=== PATIENT | female | born 1955 | race Caucasian/White ===

== ENCOUNTER 2018-05-23 11:49 | Outpatient (CLI) | payer BC, SELFPAY ==
[2018-05-23 13:18] LABS: Abs Immature Grans 0.01 k/cumm (0.0-0.09); Absolute Basophil Count 0.04 k/cumm (0.0-0.2); Absolute Eosinophil Count 0.27 k/cumm (0.0-0.7); Absolute Lymphocyte Count 1.75 k/cumm (1.2-3.4); Absolute Monocyte Count 0.38 k/cumm (0.11-0.7); Absolute Neutrophil Count 4.15 k/cumm (1.2-6.7); Basophils % 0.6; Eosinophils % 4.1; HCT 43.1 % (36.0-46.0); HGB 14.3 g/dL (12.0-15.5); Immature Grans % 0.2; Lymphocytes % 26.5; Mean Corp. HGB Concentration 33.2 g/dL (32.0-36.0); Mean Corpuscular Hemoglobin 30.3 pg (27.0-33.0); Mean Corpuscular Volume 91.3 fL (80-95); Mean Platelet Volume 11.3 fL (8.0-11.0); Monocytes % 5.8; Neutrophils % 62.8; Platelet Count 222 x1000/uL (130-400); RBC 4.72 m/cumm (4.00-5.20); RBC Distribution Width 13.8 % (11.7-14.6)
[2018-05-23 13:34] LABS: ALT 20 U/L (12-78); AST 18 U/L (15-37); Albumin 3.9 g/dL (3.4-5.0); Alkaline Phosphatase 92 U/L (46-116); BUN 14 mg/dL (7-18); Bilirubin, Total 0.6 mg/dL (0.2-1.0); CREATININE 1.25 mg/dL (0.55-1.02); Calcium 9.9 mg/dL (8.5-10.1); Chloride 107 mmol/L (98-107); Estimated GFR 43.15 (mL/min/1.73m2); Glucose 89 mg/dL (70-100); Potassium 5.1 mmol/L (3.5-5.1); Sodium 143 mmol/L (136-145); Total Protein 7.4 g/dL (6.4-8.2)
[2018-05-23 21:02] LABS: Clarity Clear; Specific Gravity 1.015 (1.005-1.025)
[2018-05-23 21:03] LABS: Bilirubin Negative (Negative); Blood Negative (Negative); Glucose Negative (Negative); Ketones Negative (Negative); Leukocyte Esterase Negative (Negative); Nitrite Negative (Negative); Urobilinogen 0.2 EU/dL (Up TO 0.2); pH 6.5 (5-8)
== END 2018-05-23 12:09 ==
PROVIDERS: PCP Nurse Practitioner Family; Visit Provider Family Medicine
DX: Z00.00 Encounter for general adult medical examination without abnormal findings (principal); R10.31 Right lower quadrant pain; R39.11 Hesitancy of micturition
CPT/HCPCS: 36415; 80053; 81003; 85025

== ENCOUNTER 2018-07-31 09:10 | Day surgery (SDC) | payer BC, SELFPAY ==
--- NOTE | 2018-07-31 07:10 | W.COLOREPORT ---
Date of service: 07/31/18 Time of Service: 10:46 Colonoscopy Report Date of procedure: 07/31/18 Pre-op diagnosis general: Colon Cancer Screening Post-op diagnosis procedure note: other (cecal polyp) Procedure: Colonoscopy with polypectomy by cold forceps Surgeon: Bruna Pryor Anesthesia proc note operative: other (General/ ASA 2/ Pinky Do CRNA) Estimated blood loss (mL): 2 Pathology: other (cecal polyp) Complications: None Disposition: same day Indications: Mrs. Rai is a pleasant 62 year old female who was seen in the office for a screening colonoscopy. Her last colonoscopy in 2006 was normal. Risks, benefits and complications have been reviewed. Complications include but are not limited to bleeding, pain, perforation, missed small lesion/polyp, sore throat, aspiration and adverse reaction to the medications. Questions were entertained and answered to their satisfaction and they wished to proceed. No guarantees were given or implied. Prep: Miralax/Dulcolax Procedure Start Time: 10:46 Procedure End Time: 11:06 Retraction Time: 13 minutes Findings: One Sessile Polyp in the cecum removed with cold forceps Procedure Description: After informed consent was obtained the patient was taken to the procedure room and placed in a left decubitous position. Monitors were applied and a time out was done. The patients name, date of , procedure, allergies to medications and metal in their body was reviewed. The patient was then sedated. Once sedated and comfortable a rectal exam was done. External exam was normal. Internal exam revealed a normal sphincter tone and no palpable masses. The scope was then introduced and retro-flexed. No internal hemorrhoids were identified. There were some internal hemorrhoidal skin tags. No masses or polyps were identified. The scope was then advanced to the cecum without difficulty. The TI and appendiceal orifice were identified. The prep was adequate. The scope was then slowly retracted over 13 minutes back into the rectum. Polyps were removed in the cecum with cold forceps. There were no diverticula. The scope was removed and the patient was woken up and taken back to Same day surgery in stable condition. The patient tolerated the procedure well and there were no immediate complications. Follow up: The patient should follow up in 3-5 years unless they develop changes in bowel habits or other new gastrointestinal complaints.
--- NOTE | 2018-07-31 07:14 | PDOC.DSDIS_ITS ---
Discharge Plan Disposition Patient Disposition: HOME Condition: Good Discharge Details Reason For Visit: Colonoscopy Attending Provider: Bruna Pryor Primary Care Provider: Alecia Phillips Home Meds and New Rx's Prescriptions: Continued levothyroxine 75 MCG tablet 75 mcg PO DAILY Qty: 90 RF: 4 levothyroxine 88 MCG tablet 88 mcg PO as directed Qty: 90 RF: 4 cholecalciferol (vitamin D3) 1,000 UNIT tablet,chewable 1,000 unit PO DAILY Qty: 90 RF: 4 Gelusil Antacid and Anti-Gas 1 EACH tablet,chewable 1 ea PO PRN PRNRF: 0 Discontinued polyethylene glycol 3350 17 gram/dose powder 238 g PO ONCE Qty: 238 RF: 0 bisacodyl [Dulcolax (bisacodyl)] 5 mg tablet,delayed release (DR/EC) 5 mg PO ONCE Qty: 4 RF: 0 Discharge Instructions Instructions: Colonoscopy (DC), Colorectal Polyps (DC) Additional Instructions: Findings: One polyp Follow up: 3-5 years Please call if you develop: fevers >101.5 Nausea or Vomiting Abdominal pain that is not transient DAY SURGERY UNIT POST COLONOSCOPY INSTRUCTIONS 1. Because there will be medication in your system for the next 24 hours, you may feel a little sleepy. Your coordination will be affected. Therefore: a. Do not drive or operate dangerous equipment for 24 hours. b. Do not drink alcohol beverages for 24 hours (not even beer). c. Plan to go home and rest for the day. 2. Generally there are no restrictions on your activity after a day or so has gone by, but you may feel a bit fatigued for a few days. 3 After you arrive home you may have a light meal and return to a normal diet as you can tolerate it without feeling sick to your stomach. 4. After surgery, you may feel pain or discomfort. This should be only transi ent, but if it persists please contact your doctor. 5. If there are any questions regarding the findings of your procedure, please feel free to contact your doctor. 6. If you are unable to contact your doctor with a problem, contact the hospital at [phone]. 7. Continue all your regular medications unless directed otherwise. I understand the above instructions and have no questions. Signature of Patient or Responsible Adult Escort Date/Time Name of Responsible Adult Escort Signature of Nurse Date/Time Activity:: Activity as Tolerated Diet:: As Tolerated Discharge Orders Discharge Orders: Discharge Order (Routine); Ordered 07/31/18 Ordered By: Bruna Pryor DS: Diagnosis Discharge Diagnosis (1) S/P colonoscopy: Status: Acute (2) Colorectal polyp detected on colonoscopy: Status: Acute
[2018-07-31 09:30] VITALS: BP 118/62; PULSE 58; RESP 16; TEMP 35.4; O2SAT 100
--- NOTE | 2018-07-31 10:54 | BOWEL_PTH ---
PATIENT: Sharri Rai LOC: [facility] U#:[id number] AGE/SX: 62/F ROOM: RE07/31/[address]: Bruna Pryor MD : [id number] BED: DIS: 07/31/2018 SPEC #: [id number] RECD: 07/31/18 13:12 STATUS: KAMRAN REQ #: [id number] ELIANA: 07/31/18 10:[address]: Bruna Pryor DEPT: Surgical Specimen RECD BY: Evita Gambino ENTERED: 07/31/18 13:13 SP TYPE: Bowel OTHR DR: KAMINI Wallace Tissues: 1 - BIOPSY BOWEL Procedures: GROSS AND MICRO LEVEL 4 Comments: [id number]
[2018-07-31 11:50] VITALS: BP 124/66; PULSE 65; RESP 16; TEMP 36; O2SAT 100
== END 2018-07-31 12:07 | disposition home or self-care (01) ==
LOC: SUR 09:11
PROVIDERS: PCP Nurse Practitioner Family; Visit Provider Surgery
PROC: 0DJD8ZZ Inspection of Lower Intestinal Tract, Via Natural or Artificial Opening Endoscopic (ICD-10-PCS; CPT 45378; principal; 2018-07-31 10:00)
DX: Z12.11 Encounter for screening for malignant neoplasm of colon (principal)
CPT/HCPCS: 45380; 88305

== ENCOUNTER 2018-09-21 11:20 | Outpatient (CLI) | payer BC, SELFPAY ==
[2018-09-21 14:29] LABS: BUN 18 mg/dL (7-18); CREATININE 1.08 mg/dL (0.55-1.02); Calcium 9.8 mg/dL (8.5-10.1); Chloride 105 mmol/L (98-107); Estimated GFR 50.92 (mL/min/1.73m2); FREE T4 1.36 ng/dL (0.76-1.46); Glucose 79 mg/dL (70-100); Potassium 4.5 mmol/L (3.5-5.1); Sodium 139 mmol/L (136-145)
[2018-09-21 14:30] LABS: Hemoglobin A1C 5.6 % (4.5-6.2)
[2018-09-21 14:45] LABS: Vitamin D 25 Total 82.4 ng/ml (30-100)
[2018-09-21 14:51] LABS: Cholesterol 219 mg/dL (50-200); HDL Cholesterol 78 mg/dL (40-60); LDL CHOLESTEROL 130 mg/dL (<100); Triglyceride 28 mg/dL (30-150)
== END 2018-09-21 11:40 ==
PROVIDERS: PCP Nurse Practitioner Family; Visit Provider Family Medicine
DX: E03.9 Hypothyroidism, unspecified (principal); E78.5 Hyperlipidemia, unspecified; M85.88 Other specified disorders of bone density and structure, other site
CPT/HCPCS: 36415; 80048; 80061; 82306; 83721; 83036; 84439; 84443

== ENCOUNTER 2018-11-15 00:26 | Outpatient (CLI) | payer BC, SELFPAY ==
--- NOTE | 2018-11-15 06:56 | DI.RAD_ITS ---
SYMPTOMS/DIAGNOSIS: OSTEOPENIA OF THE LUMBAR SPINE IN 2016, REEVALUATE, M85.55 DEXA SCAN: DEXA scan was performed according to the usual protocol. The findings for the left hip scanning are a T score of -0.6 with left femoral neck T score of -0.8. Previous examination of September 2015 showed left hip T score of -0.2. Lumbar spine scanning showed T score of -1.6. Previous examination of 2016 showed lumbar T score of -1.4. Left forearm scanning shows a T score of -2.4, prior examination of 2016 showed forearm T score of -2.0. CONCLUSION: Findings consistent with osteopenia according to the WHO criteria. Please note that the lateral vertebral scanogram shows no evidence of a vertebral compression fracture.
--- NOTE | 2018-11-15 13:00 | DI.MAMMO_ITS ---
SYMPTOM/DIAGNOSIS: SCREENING, Z12.31 MAMMOGRAMS: Mammograms were interpreted according to the usual protocol including computer analysis with CAD system, tomosynthesis and C view imaging. The breasts are of moderate density with fairly symmetrical distribution of fibroglandular tissue. No dominant mass or clumped microcalcification is identified in either breast. Current examination is compared with previous examinations including 11/2017 and there is question of interval development of a small focal area of asymmetric density projected in the central portion of the left breast on CC view only. Additional mammographic views are requested to include CC spot compression view of the left breast. CONCLUSION: Additional mammographic views left breast requested as described above. Breast ultrasound may be indicated as well depending on the results of the additional mammographic views. Category 0. Breast density, Category B. [facility] ASSESSMENT OF FINDINGS: Incomplete: Needs additional imaging evaluation. Category 0. Patient will receive a letter notifying them of these results. BI-RADS category B. There are scattered areas of fibroglandular density.
== END 2018-11-15 00:46 ==
PROVIDERS: PCP Nurse Practitioner Family; Visit Provider Nurse Practitioner Family
DX: Z12.31 Encounter for screening mammogram for malignant neoplasm of breast (principal); M85.88 Other specified disorders of bone density and structure, other site; R92.8 Other abnormal and inconclusive findings on diagnostic imaging of breast
CPT/HCPCS: 77063; 77067; 77080

== ENCOUNTER 2018-11-23 01:11 | Outpatient (CLI) | payer BC, SELFPAY ==
--- NOTE | 2018-11-23 13:44 | DI.COMBO_ITS ---
SYMPTOM/DIAGNOSIS: F/U MAMMO, ? INTERVAL DEVELOPMENT OF ASYMMETRIC DENSITY LEFT BREAST ADDITIONAL VIEWS AND LEFT BREAST ULTRASOUND: Additional images are interpreted according to the usual protocol including tomosynthesis and 2D imaging. A craniocaudad compression spot film of the left breast was obtained today. Nonspecific fibroglandular densities are demonstrated. There is no definite mass. At ultrasound, no cyst or mass is seen. SUMMARY: No evidence of malignancy, category 1. Yearly screening mammography is recommended. [facility] ASSESSMENT OF FINDINGS: Negative. Category 1. Patient will receive a letter notifying them of these results. BI-RADS category B. There are scattered areas of fibroglandular density.
== END 2018-11-23 01:31 ==
PROVIDERS: PCP Nurse Practitioner Family; Visit Provider Nurse Practitioner Family
DX: Z12.31 Encounter for screening mammogram for malignant neoplasm of breast (principal); R92.8 Other abnormal and inconclusive findings on diagnostic imaging of breast; N64.59 Other signs and symptoms in breast
CPT/HCPCS: 76642; 77063; 77067

== ENCOUNTER 2019-10-11 03:28 | Outpatient (CLI) | payer BC, SELFPAY ==
[2019-10-11 08:55] LABS: BUN 21 mg/dL (7-18); CREATININE 1.16 mg/dL (0.55-1.02); Calcium 9.1 mg/dL (8.5-10.1); Chloride 106 mmol/L (98-107); Estimated GFR 46.74 (mL/min/1.73m2); FREE T4 1.05 ng/dL (0.76-1.46); Glucose 95 mg/dL (74-106); Sodium 140 mmol/L (136-145); TSH 2.14 uIU/mL (0.36-3.74)
[2019-10-11 09:06] LABS: Calculated LDL 122 mg/dL (<100); Cholesterol 200 mg/dL (<200); HDL Cholesterol 68 mg/dL (40-60); Triglyceride 54 mg/dL (<150)
== END 2019-10-11 03:48 ==
PROVIDERS: PCP Nurse Practitioner Family; Visit Provider Nurse Practitioner Family
DX: E03.9 Hypothyroidism, unspecified (principal); E78.5 Hyperlipidemia, unspecified
CPT/HCPCS: 36415; 80048; 80061; 84439; 84443

== ENCOUNTER 2019-11-19 00:45 | Outpatient (CLI) | payer BC, SELFPAY ==
--- NOTE | 2019-11-19 11:00 | DI.MAMMO_ITS ---
EXAM: MG MAMMO SCREENING CLINICAL HISTORY: screening Z12.39 TECHNIQUE: Bilateral full field digital CC and MLO mammographic images were obtained with 3D tomosyn thesis and utilizing computer aided detection (CAD). COMPARISON: Available for comparison. FINDINGS: Masses/Architectural Distortion: None seen. Microcalcifications: No suspicious pleomorphic-type are seen. Skin Thickening/Nipple Retraction: None. IMPRESSION: 1. No significant interval change with no specific features of malignancy noted. 2. Unless there is more urgent need, screening mammography is recommended, as per [employer] guidelines. BI-RADS Category 1 - Negative Breast Density - Category B - Scattered areas of fibroglandular density A negative radiographic report should not delay biopsy if a dominant or clinically suspicious mass is present. Up to ten percent of cancers are not identified on mammography. A negative report may reinforce clinical impression. Adenosis and dense breasts may obscure an underlying neoplasm. False positive reports average 6 to 10%. Patient will receive a letter notifying them of these results.
== END 2019-11-19 01:05 ==
PROVIDERS: PCP Nurse Practitioner Family; Visit Provider Nurse Practitioner Family
DX: Z12.31 Encounter for screening mammogram for malignant neoplasm of breast (principal)
CPT/HCPCS: 77063; 77067

== ENCOUNTER 2020-05-21 04:41 | Outpatient (CLI) | payer BC, SELFPAY ==
[2020-05-21 12:07] LABS: Anion Gap 8.2 mmol/L (3-11); BUN 15 mg/dL (7-18); CO2 25.8 mmol/L (21.0-32.0); Calcium 9.5 mg/dL (8.5-10.1); Chloride 107 mmol/L (98-107); Estimated GFR 44.95 (mL/min/1.73m2); FREE T4 1.09 ng/dL (0.76-1.46); Glucose 120 mg/dL (74-106); Potassium 3.9 mmol/L (3.5-5.1); Sodium 141 mmol/L (136-145)
[2020-05-23 16:51] LABS: Almond IgE <0.35 kU/L; Brazil Nut IgE <0.35 kU/L; Cacao/Cocoa, IgE <0.35 kU/L; Cashew IgE <0.35 kU/L; Clam IgE <0.35 kU/L; Crab IgE <0.35 kU/L; Hazelnut-Food IgE <0.35 kU/L; Lobster IgE <0.35 kU/L; Milk, IgE <0.35 kU/L; Oyster IgE <0.35 kU/L; Peanut IgE <0.10 kU/L (<0.70); Pecan-Food IgE <0.35 kU/L; Salmon IgE <0.35 kU/L; Scallop IgE <0.35 kU/L; Shrimp IgE <0.35 kU/L; Walnut-Food IgE <0.35 kU/L
== END 2020-05-21 05:01 ==
PROVIDERS: PCP Nurse Practitioner Family; Visit Provider Physician Assistant
DX: E03.9 Hypothyroidism, unspecified (principal); T78.1XXA Other adverse food reactions, not elsewhere classified, initial encounter; T78.3XXA Angioneurotic edema, initial encounter; Z01.82 Encounter for allergy testing
CPT/HCPCS: 36415; 80048; 86003; 84439; 84443

== ENCOUNTER 2020-11-19 01:25 | Outpatient (CLI) | payer BC, SELFPAY ==
--- NOTE | 2020-11-19 08:30 | DI.MAMMO_ITS ---
Exam(s) MAMMO SCREENING EXAM: MAMMO SCREENING CLINICAL HISTORY: screening,Z12.39. TECHNIQUE: Bilateral full field digital CC and MLO mammographic images were obtained with 3D tomosyn thesis and utilizing computer aided detection (CAD). COMPARISON: Prior mammograms dating back to 2011, the most recent being November 2019. There is signifi cant family history. Her mother was diagnosed with breast cancer apparently at age 29.. FINDINGS: There has been no significant change in the appearance and distribution of the fibroglandular tissue There are no new spiculated masses nor malignant appearing microcalcification groups. There is no significant architectural distortion nor skin thickening-retraction. IMPRESSION: No radiographic evidence of malignancy. BI-RADS Category 1 - Negative Breast Density - Category B - Scattered areas of fibroglandular density Breast density Category C or D implies that the patient has dense breast tissue. Dense breast tissue can make it harder to find cancer on a mammogram. Dense breast tissue is also associated with an incr eased risk of breast cancer. This information about the result of the mammogram report was provided to the patient to raise their awareness. Use this report when you speak with the patient about their risks for breast cancer, which includes their family history. At that time, you may recommend additional screening tests (Ultrasoun d or MRI) as these tests may add significant information. A negative radiographic report should not delay biopsy if a dominant or clinically suspicious mass is present. Up to ten percent of cancers are not identified on mammography. A negative report may reinforce clinical impression. Adenosis and dense breasts may obscure an underlying neoplasm. False positive reports average 6 to 10%. Patient will receive a letter notifying them of these results.
== END 2020-11-19 01:45 ==
PROVIDERS: PCP Nurse Practitioner Family; Visit Provider Nurse Practitioner Family
DX: Z12.31 Encounter for screening mammogram for malignant neoplasm of breast (principal); R92.8 Other abnormal and inconclusive findings on diagnostic imaging of breast
CPT/HCPCS: 77063; 77067

== ENCOUNTER 2021-12-23 02:36 | Outpatient (CLI) | payer MEDICARE, SELFPAY ==
[2021-12-23 10:29] LABS: Hemoglobin A1C 5.9 % (<5.7)
[2021-12-23 10:54] LABS: Anion Gap 10.8 mmol/L (3-11); BUN 21 mg/dL (7-18); CO2 26.2 mmol/L (21.0-32.0); CREATININE 1.1 mg/dL (0.55-1.02); Calcium 8.9 mg/dL (8.5-10.1); Chloride 106 mmol/L (98-107); Estimated GFR 49.39 (mL/min/1.73m2); Glucose 91 mg/dL (74-106); Potassium 3.8 mmol/L (3.5-5.1); Sodium 143 mmol/L (136-145); TSH (W/Ref FT4) 7.25 uIU/mL (0.36-3.74)
[2021-12-23 11:14] LABS: FREE T4 0.97 ng/dL (0.76-1.46)
== END 2021-12-23 02:37 | disposition home or self-care (01) ==
PROVIDERS: PCP Nurse Practitioner Family; Visit Provider Nurse Practitioner
DX: E78.5 Hyperlipidemia, unspecified (principal); R73.09 Other abnormal glucose; N18.9 Chronic kidney disease, unspecified
CPT/HCPCS: 36415; 80048; 83036; 84439; 84443

== ENCOUNTER → 2022-01-28 02:45 | Outpatient (CLI) | payer MEDICARE, SELFPAY ==
--- NOTE | 2022-01-28 08:15 | DI.MAMMO_ITS ---
Exam(s) MAMMO SCREENING EXAM: MAMMO SCREENING CLINICAL HISTORY: screening,z12.39 TECHNIQUE: Mammograms were interpreted according to the usual protocol including computer analysis w [employer] CAD system, tomosynthesis and C-view imaging. COMPARISON: 2012 through 2020 FINDINGS: The breasts are composed of scattered fibroglandular densities, Breast Density category B. No suspicious masses or suspicious microcalcifications are seen. No skin thickening or abnormal axillary lymph nodes are seen. There has been no significant change from prior exams. IMPRESSION: BI-RADS Category 1, Negative mammogram Yearly screening mammography is recommended. Breast Density - Category B, scattered fibroglandular densities. A negative radiographic report should not delay biopsy if a dominant or clinically suspicious mass is present. Up to ten percent of cancers are not identified on mammography. A negative report may reinforce clinical impression. Adenosis and dense breasts may obscure an underlying neoplasm. False positive reports average 6 to 10%. Patient will receive a letter notifying them of these results.
--- NOTE | 2022-01-28 15:19 | DI.DEXA_ITS ---
Exam(s) XR DEXA BONE DENSITY W/WO TAWANA EXAM: XR DEXA BONE DENSITY W/WO TA[place]NA CLINICAL HISTORY: screening for osteoporosis, z78.0 TECHNIQUE: Holomy[employer] Horizon C densitometer analysis of left hip, lumbar spine and left forearm. COMPARISON: No exams were available for comparison FINDINGS: Lateral view of the thoracic and lumbar spine shows no evidence of compression fractures. Bone mineral density measurements of the lumbar spine correspond to a total T-score of -1.5, in the osteopenic range. This is not significantly changed from priors. Bone mineral density measurements of the left hip correspond to a total T-score of -0.6. The femora l neck T-score is -1.4, in the osteopenic range. This represents a sense of 5.5 percent decrease wh en compared with 2016 but no significant change from 2019.. The left forearm bone mineral density measurements correspond to a T-score of the distal 3rd of -3.0 , in the osteoporotic range. There is represents a 6.6 percent decrease from 2019 and 10.3 percent d ecrease from 2016.. IMPRESSION: Osteoporosis of the left forearm. Mild osteopenia of the lumbar spine and left hip.
== END ==
PROVIDERS: PCP Nurse Practitioner Family; Visit Provider Nurse Practitioner
DX: Z12.31 Encounter for screening mammogram for malignant neoplasm of breast (principal); Z78.0 Asymptomatic menopausal state; Z13.820 Encounter for screening for osteoporosis; Z81.0 Family history of intellectual disabilities; M85.89 Other specified disorders of bone density and structure, multiple sites
CPT/HCPCS: 77063; 77067; 77080

== ENCOUNTER 2022-02-25 03:50 | Outpatient (CLI) | payer MEDICARE, SELFPAY ==
[2022-02-25 13:27] LABS: TSH 3.09 uIU/mL (0.36-3.74)
== END 2022-02-25 03:51 | disposition home or self-care (01) ==
LOC: LBO 03:50
PROVIDERS: PCP Nurse Practitioner Family; Visit Provider Nurse Practitioner Family
DX: E03.9 Hypothyroidism, unspecified (principal)
CPT/HCPCS: 36415; 84439; 84443

== ENCOUNTER 2022-07-28 12:35 | Outpatient (CLI) | payer MEDICARE, SELFPAY ==
--- NOTE | 2022-07-28 | DI.RAD_ITS ---
Exam(s) XR FOOT LT COMPLETE EXAM: XR FOOT LT COMPLETE CLINICAL HISTORY: PAIN LT FOOT M79.672 PAIN LT ANKLE M25.572. TECHNIQUE: 2D digital imaging was performed of the left foot. Three images were obtained. AP, obli que and lateral views were obtained. COMPARISON: No exams were available for comparison FINDINGS: BONES: No acute fracture is present. No bony destructive lesion is seen. There is a small enthesophyt e at the posterior calcaneus. JOINTS: No dislocation present. Degenerative changes are seen in the foot particularly at the 1st MTP joint characterized by joint space narrowing and bony hypertrophy. SOFT TISSUE: Normal. IMPRESSION: No acute fracture or dislocation. DATA REPOSITORY: RADIATION DOSE DELIVERED:
--- NOTE | 2022-07-28 | DI.RAD_ITS ---
Exam(s) XR ANKLE LT COMPLETE EXAM: XR ANKLE LT COMPLETE CLINICAL HISTORY: PAIN LT ANKLE M25.572 INJURY YESTERDAY ? BONY ABNORMALITIES TECHNIQUE: 2D digital imaging was performed of the left ankle. Four images were obtained. AP, late ral and oblique views were obtained. COMPARISON: No exams were available for comparison FINDINGS: BONES: No acute fracture is present. No bony destructive lesion is seen. JOINTS:The ankle mortise is normally aligned. SOFT TISSUE: Normal. IMPRESSION: No acute fracture or dislocation. DATA REPOSITORY: RADIATION DOSE DELIVERED:
== END 2022-07-28 12:55 ==
LOC: DI 12:36
PROVIDERS: PCP Nurse Practitioner Family; Visit Provider Physician Assistant Medical
DX: M25.572 Pain in left ankle and joints of left foot (principal); M79.672 Pain in left foot; M25.871 Other specified joint disorders, right ankle and foot
CPT/HCPCS: 73610; 73630

== ENCOUNTER 2022-09-13 03:05 | Outpatient (CLI) | payer MEDICARE, SELFPAY ==
[2022-09-13 12:10] LABS: HCT 41.2 % (36.0-46.0); HGB 13.4 g/dL (11.2-15.7); MCH 29.8 pg (27.0-33.0); MCHC 32.5 % (32.0-36.0); MCV 92 fL (80-95); MPV 12.4 fL (8.0-11.0); Platelet Count 226 10^3/uL (130-400); RBC 4.49 10^6/uL (3.93-5.22); RDW 13.8 % (11.7-14.6); RDW-SD 46.7 fL; WBC 7.97 10^3/uL (4.4-10.8)
[2022-09-13 12:26] LABS: Hemoglobin A1C 5.5 % (<5.7)
[2022-09-13 12:43] LABS: Anion Gap 12.3 mmol/L (3-11); BUN 19 mg/dL (7-18); CO2 22.7 mmol/L (21.0-32.0); CREATININE 1.2 mg/dL (0.55-1.02); Calcium 9.5 mg/dL (8.5-10.1); Calculated LDL 149 mg/dL (<100); Chloride 108 mmol/L (98-107); Cholesterol 219 mg/dL (<200); Glucose 84 mg/dL (74-106); HDL Cholesterol 61 mg/dL (40-60); Sodium 143 mmol/L (136-145); TSH 2.25 uIU/mL (0.36-3.74); Triglyceride 49 mg/dL (<150)
[2022-09-13 14:57] LABS: FREE T4 1.18 ng/dL (0.76-1.46)
== END 2022-09-13 03:06 | disposition home or self-care (01) ==
LOC: LOS 03:06
PROVIDERS: PCP Nurse Practitioner Family; Visit Provider Nurse Practitioner Family
DX: E78.5 Hyperlipidemia, unspecified (principal); R73.03 Prediabetes; N18.30 Chronic kidney disease, stage 3 unspecified
CPT/HCPCS: 36415; 80048; 80061; 85027; 83036; 84439; 84443

== ENCOUNTER → 2023-02-07 02:26 | Outpatient (CLI) | payer MEDICARE, SELFPAY ==
--- NOTE | 2023-02-07 12:23 | DI.MAMMO_ITS ---
Exam(s) MAMMO SCREENING EXAM: MAMMO SCREENING CLINICAL HISTORY: screening,Z12.39, FAMILY H/O BREAST CA. TECHNIQUE: Bilateral full field digital CC and MLO mammographic images were obtained with 3D tomosyn thesis and utilizing computer aided detection (CAD). COMPARISON: Prior mammograms were reviewed. FINDINGS: No new significant findings in the right breast. In the left breast on the CC view there is an asymmetric density measuring 7 x 5 mm and located 5 cm in from the nipple. Spot compression view recommended. There are no malignant-appearing microcalcif ication groups in this region or elsewhere in either breast. There is no significant architectural distortion nor skin thickening-retraction. IMPRESSION: 1. No radiographic evidence of malignancy in right breast. 2. Asymmetric density-possible nodule in the left breast as described above. Spot compression CC vie w and breast ultrasound recommended BI-RADS Category 0 - Assessment Incomplete: Need additional imaging evaluation Breast Density - Category B - Scattered areas of fibroglandular density Breast density Category C or D implies that the patient has dense breast tissue. Dense breast tissue can make it harder to find cancer on a mammogram. Dense breast tissue is also associated with an incr eased risk of breast cancer. This information about the result of the mammogram report was provided to the patient to raise their awareness. Use this report when you speak with the patient about their risks for breast cancer, which includes their family history. At that time, you may recommend additional screening tests (Ultrasoun d or MRI) as these tests may add significant information. A negative radiographic report should not delay biopsy if a dominant or clinically suspicious mass is present. Up to ten percent of cancers are not identified on mammography. A negative report may reinforce clinical impression. Adenosis and dense breasts may obscure an underlying neoplasm. False positive reports average 6 to 10%. Patient will receive a letter notifying them of these results.
== END ==
PROVIDERS: PCP Nurse Practitioner Family; Visit Provider Nurse Practitioner Family
DX: Z12.31 Encounter for screening mammogram for malignant neoplasm of breast (principal)
CPT/HCPCS: 77063; 77067

== ENCOUNTER 2023-02-07 04:15 | Outpatient (CLI) | payer MEDICARE, SELFPAY ==
[2023-02-07 12:30] LABS: Calculated LDL 78 mg/dL (<100); Cholesterol 171 mg/dL (<200); HDL Cholesterol 80 mg/dL (40-60); Triglyceride 69 mg/dL (<150)
[2023-02-08 10:47] LABS: Hepatitis C Ab w Rflx HCV PCR Negative (Negative)
== END 2023-02-07 04:16 | disposition home or self-care (01) ==
LOC: LBO 04:15
PROVIDERS: PCP Nurse Practitioner Family; Visit Provider Nurse Practitioner Family
DX: Z00.00 Encounter for general adult medical examination without abnormal findings (principal); E78.5 Hyperlipidemia, unspecified
CPT/HCPCS: 36415; 80061; 86803

== ENCOUNTER → 2023-02-14 02:47 | Outpatient (CLI) | payer MEDICARE, SELFPAY ==
--- NOTE | 2023-02-14 | DI.MAMMO_ITS ---
Exam(s) MAMMO SCREEN CALL BACK UNI EXAM: MAMMO SCREEN CALL BACK UNI CLINICAL HISTORY: F/U MAMMO, ASYMMETRIC DENSITY POSSIBLE NODULE LT BREAST TECHNIQUE: Spot compression views with tomographic imaging were performed. COMPARISON: 2013 through 07 February 2023 FINDINGS: No suspicious masses or suspicious microcalcifications are seen. No persistent abnormality is seen on the additional views performed. The findings are consistent wit h overlying fibroglandular tissue. There has been no significant change from prior exams. IMPRESSION: BI-RADS Category 1, Negative Yearly screening mammography is recommended. Breast Density - Category B, scattered fibroglandular densities.
== END ==
PROVIDERS: PCP Nurse Practitioner Family; Visit Provider Nurse Practitioner Family
DX: Z12.31 Encounter for screening mammogram for malignant neoplasm of breast (principal); R92.8 Other abnormal and inconclusive findings on diagnostic imaging of breast
CPT/HCPCS: 77063; 77067

== ENCOUNTER 2023-09-27 05:09 | Outpatient (CLI) | payer MEDICARE, SELFPAY ==
[2023-09-27 10:25] LABS: ALT 28 U/L (14-59); AST 20 U/L (15-37); Albumin 3.8 g/dL (3.4-5.0); Alkaline Phosphatase 90 U/L (46-116); Anion Gap 11.6 mmol/L (3-11); BUN 17 mg/dL (7-18); Bilirubin, Total 0.5 mg/dL (0.2-1.0); CO2 22.4 mmol/L (21.0-32.0); CREATININE 1.3 mg/dL (0.55-1.02); Calcium 9.3 mg/dL (8.5-10.1); Calculated LDL 68 mg/dL (<100); Chloride 108 mmol/L (98-107); Cholesterol 152 mg/dL (<200); Estimated GFR 44.24 (mL/min/1.73m2); Glucose 108 mg/dL (74-106); HDL Cholesterol 72 mg/dL (40-60); Sodium 142 mmol/L (136-145); TSH (W/Ref FT4) 0.41 uIU/mL (0.36-3.74); Total Protein 7.2 g/dL (6.4-8.2); Triglyceride 60 mg/dL (<150)
[2023-09-27 10:43] LABS: Vitamin D 25 Total 52.4 ng/mL (30-100)
== END 2023-09-27 05:10 | disposition home or self-care (01) ==
LOC: LBO 05:09
PROVIDERS: PCP Nurse Practitioner Family; Visit Provider Nurse Practitioner Family
DX: N18.30 Chronic kidney disease, stage 3 unspecified (principal); E03.9 Hypothyroidism, unspecified; E78.5 Hyperlipidemia, unspecified; M81.0 Age-related osteoporosis without current pathological fracture
CPT/HCPCS: 36415; 80053; 80061; 82306; 84443

== ENCOUNTER 2024-02-27 01:06 | Outpatient (CLI) | payer MEDICARE, SELFPAY ==
--- NOTE | 2024-02-27 07:00 | DI.DEXA_ITS ---
Exam(s) XR DEXA BONE DENSITY W/WO TAWANA EXAM: XR DEXA BONE DENSITY W/WO TA[place]NA CLINICAL HISTORY: osteopenia,SCREENING FOR OSTEOPOROSIS,Z78.0 TECHNIQUE: COMPARISON: CR XR DEXA BONE DENSITY W/WO TAWANA from 01/28/2022 FINDINGS: Lateral Spine Image: Unremarkable. No compression deformities identified. Left hip: Total T-Score: -1.0. This compares to -0.6 on the prior examination. Total Z-Score: 0.6 T- and Z-scores: Within normal limits. There is no evidence of osteoporosis. Lumbar Spine: Total T-Score: -1.4. This compares to -1.5 on the prior examination. Total Z-Score: 0.7 T- and Z-scores: Findings are consistent with osteopenia. There is no evidence of osteoporosis. Left forearm: Total T-score:-3.1. This compares to -2.7 on the prior examination. Total Z-score:-1.1 T and Z-score is: Findings are again seen consistent with osteoporosis. IMPRESSION: Osteoporosis in the left forearm.
--- NOTE | 2024-02-27 07:00 | DI.MAMMO_ITS ---
Exam(s) MAMMO SCREENING EXAM: MAMMO SCREENING CLINICAL HISTORY: screening,Z12.39. TECHNIQUE: Bilateral full field digital CC and MLO mammographic images were obtained with 3D tomosyn thesis and utilizing computer aided detection (CAD). COMPARISON: Prior mammograms were reviewed. FINDINGS: There has been no significant change in the appearance and distribution of the fibroglandular tissue. There are no CAD designations. There are no new spiculated masses nor malignant appearing microcalcification groups. There is no significant architectural distortion nor skin thickening-retraction. IMPRESSION: No radiographic evidence of malignancy. BI-RADS Category 1 - Negative Breast Density - Category B - Scattered areas of fibroglandular density Breast density Category C or D implies that the patient has dense breast tissue. Dense breast tissue can make it harder to find cancer on a mammogram. Dense breast tissue is also associated with an incr eased risk of breast cancer. This information about the result of the mammogram report was provided to the patient to raise their awareness. Use this report when you speak with the patient about their risks for breast cancer, which includes their family history. At that time, you may recommend additional screening tests (Ultrasoun d or MRI) as these tests may add significant information. A negative radiographic report should not delay biopsy if a dominant or clinically suspicious mass is present. Up to ten percent of cancers are not identified on mammography. A negative report may reinforce clinical impression. Adenosis and dense breasts may obscure an underlying neoplasm. False positive reports average 6 to 10%. Patient will receive a letter notifying them of these results.
== END 2024-02-27 01:26 ==
LOC: DI 01:06
PROVIDERS: PCP Nurse Practitioner Family; Visit Provider Nurse Practitioner Family
DX: Z78.0 Asymptomatic menopausal state (principal); Z12.31 Encounter for screening mammogram for malignant neoplasm of breast; Z13.820 Encounter for screening for osteoporosis; M81.0 Age-related osteoporosis without current pathological fracture
CPT/HCPCS: 77063; 77067; 77080

== ENCOUNTER 2024-10-04 03:17 | Outpatient (CLI) | payer MEDICARE, SELFPAY ==
[2024-10-04 10:26] LABS: HCT 39.4 % (36.0-46.0); HGB 13.1 g/dL (11.2-15.7); MCH 29.9 pg (27.0-33.0); MCHC 33.2 % (32.0-36.0); MCV 90 fL (80-95); MPV 10.9 fL (8.0-11.0); Platelet Count 206 10^3/uL (130-400); RBC 4.38 10^6/uL (3.93-5.22); RDW 13.4 % (11.7-14.6); RDW-SD 44.3 fL; WBC 7.75 10^3/uL (4.4-10.8)
[2024-10-04 11:19] LABS: Hemoglobin A1C 5.7 % (<5.7)
[2024-10-04 11:27] LABS: ALT 26 U/L (14-59); AST 24 U/L (15-37); Albumin 3.8 g/dL (3.4-5.0); Alkaline Phosphatase 92 U/L (46-116); BUN 16 mg/dL (7-18); Bilirubin, Total 0.5 mg/dL (0.2-1.0); CREATININE 1.1 mg/dL (0.55-1.02); Calcium 9.4 mg/dL (8.5-10.1); Chloride 109 mmol/L (98-107); Estimated GFR 53.72 (mL/min/1.73m2); Glucose 102 mg/dL (74-106); PHOSPHORUS 3.1 mg/dL (2.6-4.7); Potassium 3.8 mmol/L (3.5-5.1); Sodium 144 mmol/L (136-145); TSH (W/Ref FT4) 0.62 uIU/mL (0.36-3.74); Total Protein 6.9 g/dL (6.4-8.2)
[2024-10-04 12:12] LABS: Vitamin D 25 Total 54 ng/mL (30-100)
[2024-10-04 19:04] LABS: Parathyroid Hormone,Intact 49 pg/mL (19-88)
== END 2024-10-04 03:18 | disposition home or self-care (01) ==
LOC: LBO 03:17
PROVIDERS: PCP Nurse Practitioner Family; Visit Provider Nurse Practitioner Family
DX: N18.30 Chronic kidney disease, stage 3 unspecified (principal); E03.9 Hypothyroidism, unspecified; M81.0 Age-related osteoporosis without current pathological fracture
CPT/HCPCS: 36415; 80053; 82306; 85027; 81003; 82043; 82570; 83036; 83970; 84100; 84443; 84550

== ENCOUNTER 2024-10-05 16:06 | Outpatient (REF) | payer MEDICARE, SELFPAY ==
[2024-10-05 11:54] LABS: Bilirubin Negative (Negative); Blood Negative (Negative); Clarity Clear (Clear); Glucose Negative (Negative); Ketones Negative (Negative); Leukocyte Esterase Negative (Negative); Nitrite Negative (Negative); Specific Gravity 1.015 (1.005-1.025); Urobilinogen 0.2 mg/dL (Up to 0.2)
[2024-10-05 12:24] LABS: COMMENT (LAB VIEW ONLY) 82.89 mg/dL
== END 2024-10-05 16:07 | disposition home or self-care (01) ==
LOC: LBN 16:06
PROVIDERS: PCP Nurse Practitioner Family; Visit Provider Nurse Practitioner Family
DX: N18.30 Chronic kidney disease, stage 3 unspecified (principal); E03.9 Hypothyroidism, unspecified; M81.0 Age-related osteoporosis without current pathological fracture
CPT/HCPCS: 81003; 82043; 82570

== ENCOUNTER 2025-02-27 01:06 | Outpatient (CLI) | payer MEDICARE, SELFPAY ==
--- NOTE | 2025-02-27 12:01 | DI.MAMMO_ITS ---
Exam(s) MAMMO SCREENING EXAM: MAMMO SCREENING CLINICAL HISTORY: screening,z12.39 TECHNIQUE: Bilateral full field digital CC and MLO mammographic images were obtained with 3D tomosynthesis and utilizing computer aided detection (CAD). COMPARISON: Comparison is made with prior examinations. FINDINGS: Masses/Architectural Distortion: No suspicious masses or areas of architectural distortion are present. Microcalcifications: No suspicious pleomorphic-type are seen. Skin Thickening/Nipple Retraction: None. IMPRESSION: 1. No significant interval change with no specific features of malignancy noted. 2. Unless there is more urgent need, screening mammography is recommended, as per [employer] [employer] guidelines. BI-RADS Category 1 - Negative Breast Density - Category B - There are scattered areas of fibroglandular density. Breast density Category C or D implies that the patient has dense breast tissue. Dense breast tissue can make it harder to find cancer on a mammogram. Dense breast tissue is also associated with an increased risk of breast cancer. This information about the result of the mammogram report was provided to the patient to raise their awareness. Use this report when you speak with the patient about their risks for breast cancer, which includes their family history. At that time, you may recommend additional screening tests (Ultrasound or MRI) as these tests may add significant information. A negative radiographic report should not delay biopsy if a dominant or clinically suspicious mass is present. Up to ten percent of cancers are not identified on mammography. A negative report may reinforce clinical impression. Adenosis and dense breasts may obscure an underlying neoplasm. False positive reports average 6 to 10%. Patient will receive a letter notifying them of these results.
== END 2025-02-27 01:26 ==
PROVIDERS: PCP Nurse Practitioner Family; Visit Provider Nurse Practitioner Family
DX: Z12.31 Encounter for screening mammogram for malignant neoplasm of breast (principal)
CPT/HCPCS: 77063; 77067

== ENCOUNTER 2025-03-24 18:08 | Emergency (ER) | payer MEDICARE, SELFPAY ==
[2025-03-24 18:18] VITALS: BP 166/77; PULSE 65; RESP 18; TEMP 36.4; O2SAT 97
--- NOTE | 2025-03-24 18:28 | W.ED.GENAD ---
Discharge Plan Disposition Patient Disposition: Home Condition: Stable Discharge Details Clinical Impression: Hypertensive urgency Primary Care Provider: Alecia Phillips ED Provider: Brian Coppola Home Meds and New Rx's Prescriptions: New amlodipine 2.5 mg tablet 2.5 mg PO DAILY Qty: 60 0RF Continued famotidine 10 mg tablet 10 mg PO DAILY PRN (Reason: epigastric pain) mirtazapine 15 mg tablet 15 mg PO QHS Qty: 90 3RF Rx Instructions: Take 1 tablet at bedtime rosuvastatin 10 mg tablet 10 mg PO DAILY Qty: 90 3RF levothyroxine 88 mcg tablet 88 mcg PO DAILY Qty: 90 3RF Rx Instructions: Take 1 tablet daily in the morning at least 30-60 minutes before breakfast and other medications Discharge Instructions Instructions: High blood pressure emergencies, Amlodipine Additional Instructions: You were seen in the emergency department for your hypertension that is poorly controlled, you do not take any hypertensive medications, I am starting you on a low-dose of amlodipine, please take this as directed and talk with your primary care provider about possibly switching this to lisinopril when you can arrange for primary care visit, you can start taking one 2.5 mg tablet once a day but if you need more blood pressure control you can take 2.5 twice a day or even 5 mg once a day or 5 mg twice a day if your blood pressure remains elevated, please update your primary care provider of any of these changes you make. Your workup is negative for any damage from your hypertension to any organ system, please return for any poorly controlled hypertension despite treatment especially with headache, floaters in your vision, vision loss, chest pain or any other emergent concerns Stand Alone Forms: Portal Information Referrals: Alecia Phillips NP [Primary Care Provider, Medicine] Discharge Data Discharge Date/Time-TO BE ENTERED AT DEPARTURE: 03/24/25 20:14 HPI General Date/Time Provider Initiated Documentation: 03/24/25 18:24. HPI Narrative: 69 year-old female presents to ED today by POV/ambulating with a chief complaint of hypertension without diagnosis of this condition- BP has been in the 180s with onset noticed insidiously lately while dealing with stress with her getting a CABG. Quality described as feels off, cannot quite describe it, no radiation to chest pain, palpitations, severe headache, loss of vision/floaters, flank pain, urinary symptoms. Severity is described as unable to quantify. Palliating factors include nothing specific. Provoking factors include nothing specific. Patient not anticoagulated. Related Data Home Medications Medication Instructions Recorded Confirmed famotidine 10 mg tablet 10 mg PO DAILY PRN epigastric pain 10/07/22 01/13/24 mirtazapine 15 mg tablet 15 mg PO QHS #90 tabs 10/08/24 rosuvastatin 10 mg tablet 10 mg PO DAILY #90 tabs 10/08/24 levothyroxine 88 mcg tablet 88 mcg PO DAILY #90 tabs 12/31/24 amlodipine 2.5 mg tablet 2.5 mg PO DAILY #60 tabs 03/24/25 Previous Rx's Medication Instructions Recorded mirtazapine 15 mg tablet 15 mg PO QHS #90 tabs 10/08/24 rosuvastatin 10 mg tablet 10 mg PO DAILY #90 tabs 10/08/24 levothyroxine 88 mcg tablet 88 mcg PO DAILY #90 tabs 12/31/24 amlodipine 2.5 mg tablet 2.5 mg PO DAILY #60 tabs 03/24/25 Allergies Allergy/AdvReac Type Severity Reaction Status Date / Time canola oil Allergy Intermediate Anaphylaxis Verified 11/25/23 10:36 doxycycline AdvReac Intermediate Visual Verified 11/25/23 10:36 Disturbances soy oil Allergy Itching Uncoded 01/13/24 13:39 General Stated Complaint: GenMedical HARLEY: 4 Review of Systems All systems reviewed & are unremarkable except as noted in HPI and below Exam Narrative Exam Narrative: GENERAL APPEARANCE: Well-nourished, non-toxic, awake and alert, atraumatic, no acute distress. SKIN: Warm, pink, dry, intact, without rashes/lesions/ulcerations. HEAD: Normocephalic, atraumatic, normal hair distribution for gender/age. EYES: Normal conjunctiva, no exudates on lids/lashes. ENT: Nares patent, no circumoral cyanosis, no facial swelling NECK: Supple, trachea midline, painless cervical ROM. LUNGS/CHEST: Lungs CTA bilaterally- no rhonchi/rales/wheezes diffusely, non-labored respirations, normal A/P diameter, symmetrical expansion, no chest wall deformity HEART (CV/PV): Regular rate and rhythm without murmur, no peripheral edema, no JVD. ABDOMEN: Soft, non-distended, no guarding. MSK: Normal ROM, no swelling/deformity to bilateral UEs or LEs, moving all extremities without weakness, no cyanosis, spine midline without tenderness, normal curvature. NEURO: Mental Status AAOx4 - alert to person, place, time, events No facial droop, no forehead involvement. Motor: No focal weakness - strength 5/5 in bilateral UEs and LEs, proximal and distal, symmetric. Sensory: sensation intact to light touch globally. Gait normal: patient ambulated without ataxia into ED room. PSYCH: euthymic, cooperative, pleasant, appropriate speech Course Vital Signs Vital signs: Vital Signs Temperature 36.4 C L 03/24/25 18:18 Pulse 65 03/24/25 18:18 Respiratory Rate 18 03/24/25 18:18 Blood Pressure 166/77 H 03/24/25 18:18 Pulse Oximetry 97 03/24/25 18:18 Temperature 36.4 C L 03/24/25 18:18 Temperature Source Temporal Artery Scan 03/24/25 18:18 Pulse 65 03/24/25 18:18 Respiratory Rate 18 03/24/25 18:18 Blood Pressure 166/77 H 03/24/25 18:18 Blood Pressure Position Sitting 03/24/25 18:18 Pulse Oximetry 97 03/24/25 18:18 Oxygen Delivery Method Room Air 03/24/25 18:18 Oxygen Flow Rate 0 03/24/25 18:18 Pain Level 0 03/24/25 18:18 Medical Decision Making This dictation utilizes [id number] dictation software and may contain unedited grammatical errors. 69 year-old female presents to ED today by POV/ambulating with a chief complaint of hypertension without diagnosis of this condition- BP has been in the 180s with onset noticed insidiously lately while dealing with stress with her getting a CABG. Quality described as feels off, cannot quite describe it, no radiation to chest pain, palpitations, severe headache, loss of vision/floaters, flank pain, urinary symptoms. Severity is described as unable to quantify. Palliating factors include nothing specific. Provoking factors include nothing specific. Patients' medical history: GERD, prediabetes, hypothyroidism, CKD, osteoporosis, hyperlipidemia. Family and social history: Family stressors with her going through CABG surgery. Pertinent exam findings / vital signs include benign cardiopulmonary exam, neuro intact, no CVA tenderness to percussion bilaterally. Differential / pathologies of concern include hypertensive urgency, hypertensive emergency, new diagnosis hypertension. Diagnostic studies of: - CBC, BMP, troponin, UA, EKG, x-ray chest, CT head without contrast. - Laboratory workup completely benign, baseline creatinine, troponin negative, no leukocytosis, no proteinuria - CT head within normal limits, x-ray chest negative for any acute pathology - EKG shows sinus bradycardia 55 bpm with normal intervals, P waves followed by narrow complex QRS, normal axis, does have flipped T waves in V1 and aVL- no priors Interventions of: - Provided reassurance as well as gave the patient prescription for 2.5 mg daily amlodipine and recommend she follow-up with her primary care provider, encouraged lifestyle changes instead of medication both both are viable options. Patient states she already does limit her salt intake and gets regular exercise ED Course/Assessment/Plan: 69-year-old female dealing with a lot of stress at home lately with her going through his health problems notices that her blood pressure has been fairly [id number] with systolics in the 170s and 180s which is very atypical for her but has remained constant for number of days now, workup for any endorgan damage from hypertensive emergency is completely negative, counseled the patient on lifestyle changes but she already does do a fair bit of these on her own, I did send her to 0.5 mg amlodipine and recommend she follow-up with her primary care provider if she needs to titrate medications. Findings not consistent with hypertensive emergency. Disposition of hypertensive urgency. Patient verbalized understanding of the plan and return to ED criteria and engaged in shared decision making. Medical Records Medical records reviewed: Yes I reviewed the patient's medical records. Imaging Data Radiologic Study: Attestation: I personally reviewed and interpreted this imaging study as follows: Imaging: CT Scan Radiologist's impression: Exam: CT Head Without Contrast Exam date and time: 03/24/2025 7:13 PM Age: 69 years old Clinical indication: Condition or disease; Other: New onset severe HTN TECHNIQUE: Imaging protocol: Computed tomography of the head without contrast. COMPARISON: No relevant prior studies available. FINDINGS: Brain: No acute intracranial hemorrhage, mass-effect, midline shift, or extra-axial collection is seen. The gutierrez white matter differentiation appears preserved. Cerebral ventricles: The ventricular system and basilar cisterns appear appropriate in size and configuration. Paranasal sinuses: The visualized paranasal sinuses appear well-aerated. Mastoid air cells: The mastoid air cells appear well-aerated. Auditory system: The middle ear cavities appear clear. Bones: The bony calvarium appears intact. No depressed skull fracture is seen. Soft tissues: No significant scalp lesion is seen. IMPRESSION: No acute intracranial abnormality seen. Dictated and Authenticated by: Maxi Gipson MD. Radiologic Study #2: Attestation: I personally reviewed and interpreted this imaging study as follows: Imaging: X-Ray Radiologist's impression: Exam: CT Head Without Contrast Exam date and time: 03/24/2025 7:13 PM Age: 69 years old Clinical indication: Condition or disease; Other: New onset severe HTN TECHNIQUE: Imaging protocol: Computed tomography of the head without contrast. COMPARISON: No relevant prior studies available. FINDINGS: Brain: No acute intracranial hemorrhage, mass-effect, midline shift, or extra-axial collection is seen. The gutierrez white matter differentiation appears preserved. Cerebral ventricles: The ventricular system and basilar cisterns appear appropriate in size and configuration. Paranasal sinuses: The visualized paranasal sinuses appear well-aerated. Mastoid air cells: The mastoid air cells appear well-aerated. Auditory system: The middle ear cavities appear clear. Bones: The bony calvarium appears intact. No depressed skull fracture is seen. Soft tissues: No significant scalp lesion is seen. IMPRESSION: No acute intracranial abnormality seen. Dictated and Authenticated by: Maxi Gipson MD. Lab Data Lab results reviewed: Yes I reviewed the patient's lab results. Labs: Laboratory Tests Range/Units 03/24/25 03/24/25 19:11 19:29 WBC (4.4-10.8) 10^3/uL 7.81 RBC (3.93-5.22) 10^6/uL 4.38 Hgb (11.2-15.7) g/dL 12.7 Hct (36.0-46.0) % 38.6 MCV (80-95) fL 88 MCH (27.0-33.0) pg 29.0 MCHC (32.0-36.0) % 32.9 RDW (11.7-14.6) % 12.8 Plt Count (130-400) 10^3/uL 298 MPV (8.0-11.0) fL 10.4 Immature Gran % % 0.4 Neutrophils % % 55.4 Lymphocytes % % 31.9 Monocytes % % 5.8 Eosinophils % % 5.6 Basophils % % 0.9 Nucleated RBC % (0.0-0.3) % 0.0 Absolute Neutrophils (1.2-6.7) 10^3/uL 4.33 Absolute Lymphocytes (1.2-3.4) 10^3/uL 2.49 Absolute Monocytes (0.1-0.8) 10^3/uL 0.45 Absolute Eosinophils (0.0-0.7) 10^3/uL 0.44 Absolute Basophils (0.0-0.2) 10^3/uL 0.07 Sodium (136-145) mmol/L 145 Potassium (3.5-5.1) mmol/L 4.0 Chloride (98-107) mmol/L 110 H Carbon Dioxide (20.0-31.0) mmol/L 24.4 Anion Gap (3-11) mmol/L 10.6 BUN (9-23) mg/dL 17 Creatinine (0.55-1.02) mg/dL 1.1 H Est GFR (CKD-EPI 2020) (mL/min/1.73m2) 51.58 Glucose (74-106) mg/dL 99 Calcium (8.3-10.6) mg/dL 9.3 Troponin I (<35) ng/L 4 Urine Color (Yellow) Yellow Urine Clarity (Clear) Clear Urine pH (5-8) 6.5 Ur Specific [place] (1.005-1.025) 1.015 Urine Protein (Neg-Trace) mg/dL Negative Urine Ketones (Negative) mg/dL Negative Urine Blood (Negative) Trace-intact H Urine Nitrite (Negative) Negative Urine Bilirubin (Negative) Negative Urine Urobilinogen (Up to 0.2) mg/dL 0.2 Ur Leukocyte Esterase (Negative) Negative Urine RBC (0-2) HPF 0-2 Urine WBC (0-5) HPF 0-2 Ur Epithelial Cells (Negative) HPF Rare Urine Crystals (Negative) HPF Negative Urine Bacteria (Negative) HPF Rare Urine Casts (Negative) LPF Negative Urine Mucus (Negative) Negative Ur Culture Indicated? No Urine Glucose (Negative) mg/dL Negative PFSH All Active Problems (Updated 03/24/25 @ 19:35 by KUSUM Lorenz) Hypertensive urgency (Acute) Hypothyroidism (Chronic) CKD (chronic kidney disease) stage 3, GFR 30-59 ml/min (Chronic) Osteoporosis (Chronic) Dexa 2021 Hyperlipidemia (Chronic) Insomnia (Chronic) Medical History (Updated 03/24/25 @ 19:35 by KUSUM Lorenz) Peptic ulcer disease Prediabetes Depressive disorder Surgical History S/P gastric surgery (~1962) Hx of esophagogastroduodenoscopy (08/26/14) S/P colonoscopy (07/31/18) History of bunionectomy of right great toe S/P ORIF (open reduction internal fixation) fracture (06/13/12) Volar plating of right distal radius and ulnar fracture History of bunionectomy of left great toe (08/27/16) H/O local excision of skin lesion (12/25/02) Right neck skin lesion excision--benign pathology Family History Mother , at 36 of breast CA Breast cancer Father , at 42 of [place] Heart disease Myocardial infarction Hypertension Sister MS (multiple sclerosis) Hyperlipidemia Depression Breast cancer Son Anxiety Daughter Anxiety Depression Daughter Anxiety Depression Daughter Bipolar disorder Maternal Grandfather Hypertension Heart disease Stroke Bipolar disorder Maternal Grandmother , 100 Hypertension Paternal Grandfather , in his 60s Heart disease Paternal Grandmother , in her 40s No problems noted. Social History Smoking/Tobacco Use Status: Former Tobacco Use Tobacco: How many years used: 1 Quit status: has quit before Smoking risk assessment performed?: Yes Alcohol Intake: current Alcohol Intake frequency: a few times a week Alcohol type: wine Drug use: Never Substance use type: does not use Caregiver/Support person: No Household members: spouse Housing: house Communication Needs: None Do you need help understanding health information?: Never Pets and animals: Yes Pets and animals: dog(s) Sexually active: Yes Do you think of yourself as: straight/heterosexual Current gender identity: female What is your relationship status?: How often do you talk on the phone with friends or family?: three or more times per week How often do you get together with friends or relatives?: once per week How often do you attend christianity or congregational services?: decline to answer Do you belong to any clubs or organized social groups?: no Panel score (0-1 are the most socially isolated patients): 2 What type of physical activity do you participate in: walking Duration: 15-30 minutes/day Frequency: daily Arianna/Pentecostal: None Special arianna needs: No Seatbelt use: always Drive intox or ride w/intox coal tram driver: No Female Reproductive History Menstrual Menopause type: natural History History 5 Para 4 Hx # Term Pregnancies Multiple births Hx # Pregnancies Ectopic pregnancies AB induced Hx Number of Living Children 4 AB spontaneous 1
--- NOTE | 2025-03-24 18:30 | DI.CT_ITS ---
Exam(s) CT HEAD WO EXAM: CT HEAD WO CLINICAL HISTORY: new onset severe HTN. TECHNIQUE: Imaging Protocol: Axial computed tomography images with coronal and sagittal reformatted images were created and reviewed COMPARISON: No exams were available for comparison FINDINGS: Ventricles and Extra axial spaces: Normal in size and morphology for the patient's age. Hemorrhage: None. Cerebral parenchyma: No evidence of acute infarct or mass. Midline shift: None. Brainstem/Cerebellum: Normal. Bones: No skull or facial fractures. Visualized Paranasal sinuses:Clear. Mastoids: Clear. Soft Tissues: Unremarkable. ORBITS: Unremarkable. PITUITARY: Not enlarged. IMPRESSION: No acute intracranial process. The preliminary [facility] report was reviewed. RADIATION DOSE DELIVERED: 841.42mGy.cm Total DLP DATA REPOSITORY: All CT scans at this facility are submitted to the National Radiology Data Registry (NRDR) Dose Index Registry (DIR) with the [employer] ([employer]). RADIATION OPTIMIZATION: All CT scans at this facility use at least one of these dose optimization techniques: automated exposure control; mA and/or kV adjustment per patient size (includes targeted exams where dose is matched to clinical indication); or iterative reconstruction.
--- NOTE | 2025-03-24 18:30 | DI.RAD_ITS ---
Exam(s) XR CHEST 2V PA LATERAL EXAM: XR CHEST 2V PA LATERAL CLINICAL HISTORY: palpitations TECHNIQUE: 2D digital imaging was performed. Two views. COMPARISON: CR LEFT SHOULDER COMPLETE from 03/01/2016 FINDINGS: HEART: Normal size. Aorta: Not dilated. PULMONARY VASCULATURE: Normal. MEDIASTINUM: Unremarkable. LUNGS: Leah blunting at the left costophrenic angle. Increased left basilar densities, suspicious for pneumonia. PLEURAL SPACE: There is blunting at the left costophrenic angle. No pneumothorax. BONE:Unremarkable for age. SOFT TISSUES: Unremarkable. IMPRESSION: Left basilar infiltrate and tiny pleural effusion. The preliminary [facility] report was reviewed. DATA REPOSITORY: RADIATION DOSE DELIVERED:
--- NOTE | 2025-03-24 18:30 | RT.EKG_ITS ---
APPROVED REPORT Exam: Resting ECG Reason for Exam: palpitations Patient Location: E HR:55 bpm ECG Measurements Heart Rate 55 AXIS VA 143 P 79 QRSd 94 QRS 71 QT 418 T 79 QTc 400 Conclusion Sinus bradycardia...rate< 60 No Occlusion FL
--- NOTE | 2025-03-24 19:27 | DI.[facility]_ITS ---
PROCEDURE INFORMATION: Exam: CT Head Without Contrast Exam date and time: 03/24/2025 7:13 PM Age: 69 years old Clinical indication: Condition or disease; Other: New onset severe HTN TECHNIQUE: Imaging protocol: Computed tomography of the head without contrast. COMPARISON: No relevant prior studies available. FINDINGS: Brain: No acute intracranial hemorrhage, mass-effect, midline shift, or extra-axial collection is seen. The gutierrez white matter differentiation appears preserved. Cerebral ventricles: The ventricular system and basilar cisterns appear appropriate in size and configuration. Paranasal sinuses: The visualized paranasal sinuses appear well-aerated. Mastoid air cells: The mastoid air cells appear well-aerated. Auditory system: The middle ear cavities appear clear. Bones: The bony calvarium appears intact. No depressed skull fracture is seen. Soft tissues: No significant scalp lesion is seen. IMPRESSION: No acute intracranial abnormality seen. Dictated and Authenticated by: Maxi Gipson MD. Orderin Abdon Torres MD
[2025-03-24 19:34] LABS: Glucose Negative (Negative)
[2025-03-24 19:42] LABS: Abs Immature Grans 0.03 10^3/uL (0.0-0.06); HCT 38.6 % (36.0-46.0); HGB 12.7 g/dL (11.2-15.7); Immature Grans % 0.4 %; MCH 29.0 pg (27.0-33.0); MCHC 32.9 % (32.0-36.0); MCV 88 fL (80-95); MPV 10.4 fL (8.0-11.0); Platelet Count 298 10^3/uL (130-400); RBC 4.38 10^6/uL (3.93-5.22); RDW 12.8 % (11.7-14.6); RDW-SD 41.3 fL; WBC 7.81 10^3/uL (4.4-10.8)
[2025-03-24 19:44] LABS: C & S Indicated? No; RBC 0-2 HPF (0-2); WBC 0-2 HPF (0-5)
--- NOTE | 2025-03-24 19:57 | DI.[facility]_ITS ---
PROCEDURE INFORMATION: Exam: XR Chest Exam date and time: 03/24/2025 7:20 PM Age: 69 years old Clinical indication: Other: Palpitations TECHNIQUE: Imaging protocol: Radiologic exam of the chest. Views: 2 views. COMPARISON: No relevant prior studies available. FINDINGS: Lungs: The left hemidiaphragm is obscured on the frontal view and incompletely demonstrated on the lateral view. Otherwise, no pulmonary consolidation is seen. Pleural spaces: There is blunting of the left costophrenic angle. No pleural effusion is seen on the right. No pneumothorax is demonstrated. Heart/Mediastinum: The heart appears normal in size. Bones/joints: The visualized bony structures appear grossly intact, as seen. IMPRESSION: 1. Blunting of the left costophrenic angle and lost visualization of the left hemidiaphragm. A small pleural effusion, pleural thickening, atelectasis, or a small region of consolidation at the left base could account for this appearance. Clinical correlation is recommended. 2. Otherwise, no active disease is seen in the chest. Dictated and Authenticated by: Maxi Gipson MD. Orderin Abdon Torres MD
[2025-03-24 19:58] LABS: Anion Gap 10.6 mmol/L (3-11); BUN 17 mg/dL (9-23); CO2 24.4 mmol/L (20.0-31.0); Calcium 9.3 mg/dL (8.3-10.6); Chloride 110 mmol/L (98-107); Glucose 99 mg/dL (74-106); Potassium 4.0 mmol/L (3.5-5.1); Sodium 145 mmol/L (136-145); Troponin I 4 ng/L (<35)
== END 2025-03-24 20:15 | disposition home or self-care (01) ==
PROVIDERS: Emergency Provider Physician Assistant; PCP Nurse Practitioner Family
DX: I16.0 Hypertensive urgency (principal)
CPT/HCPCS: 99284 ×2; 36415; 80048; 93005; 70450; 71046; 81003; 81015; 84484; 85025; 93010